=== PATIENT | male | born 1975 | race Caucasian/White ===

== ENCOUNTER 2016-11-14 16:47 | Emergency (ER) | payer OTHER ==
[~2016-11-14] VITALS: Ht 172.7 cm; Wt 59.1 kg
[2016-11-14 17:02] VITALS: BP 123/85; PULSE 59; RESP 14; O2SAT 100
[2016-11-14 18:09] LABS: BASOPHILS % (AUTO) 0.5 % (0-3); EOSINOPHILS % (AUTO) 2.6 % (0-5); MONOCYTES % (AUTO) 7.9 % (4-12); Mean Corpuscular Hemoglobin 29.6 pg (27.0-35.0); Mean Corpuscular Volume 85.6 fL (81-100); NEUTROPHILS % (AUTO) 79.8 % (40-74); Platelet Count 332 bil/L (150-400)
--- NOTE | 2016-11-14 18:19 | ED.REPORT ---
HPI-Abd Pain F 40 and Over Date of Service Nov 14, 2016 ED Provider: Robin Oliveira MD Pt is a healthy 41 y/o male who presents to the ED c/o cramping lower abdominal pain onset this afternoon. He describes his pain as waxing and waning that is exacerbated by eating and drinking. Additional symptoms include nausea, chills, and diaphoresis. He denies vomiting, diarrhea, dysuria, or any similar symptoms previously. Nursing Notes Stated Complaint: ABDOMINAL PAIN & VOMITING Chief Complaint: Male Abdominal Pain Nursing Notes Reviewed: Yes ([place], Introhive not reconciled) Allergies: Coded Allergies: Penicillins (Verified Allergy, Unknown, 10/28/13) General Time Seen by MD: 18:10 Chief Complaint Abdominal pain Hx Obtained From: Patient, Other family... (Step-father) Arrived By: Walk-in Sudden in Onset?: Yes Onset Occurred: 1 - 4 hours ago Symptom Duration: Waxes and wanes Location: : Abdomen lower Quality: Cramping, Painful Radiation: : Does not radiate Severity: Current: Mild Severity: Maximum: Severe Associated with: Reports: Chills, Nausea Additional Notes: diaphoresis Pertinent Negative: Pt denies other symptoms Exacerbated by: Eating Recent Healthcare: No recent doctor visit, No recent hospitalization Similar Sx Previous: No Past Medical History Past Medical History Denies Past Surgical History Denies Smoking History Never Smoker Social History Alcohol Use: Denies alcohol use Drug Use: Denies drug use Other Social History: Good social support Ambulatory Status Independent Review of Systems Constitutional: Reports: Chills GI: Reports: Abdominal pain (lower abdominal pain), Nausea, Denies: Diarrhea, Vomiting Female: Denies: Dysuria Complete sys rev & neg: except as marked. Skin: Reports Diaphoresis Physical Exam Vital Signs Vital Signs (First) Date Time Temp Pulse Resp B/P Pulse Ox O2 Delivery O2 Flow Rate FiO2 11/14/16 17:02 36.8 59 14 123/85 100 Room Air Initial VS: Reviewed, Vital signs normal Head / Eyes: Atraumatic, Normocephalic Neck: Supple, Full range of motion Extremities: Vascular intact, Neuro intact, No swelling, No tenderness Skin: Warm, Dry, No cyanosis Neurologic: Alert, Oriented, Nonfocal Psychiatric: Mood/affect normal, Behavior normal, Normal thought content General/Constitutional: Awake, Alert Respiratory / Chest: Atraumatic, Breath sounds NL, Breath sounds = bilat, No respiratory distress Cardiovascular: Heart rate NL, Regular rhythm, Heart sounds NL Abdomen: Atraumatic, Soft Tenderness/Guarding/Rebound: Negative: McBurney's point tender Tenderness across lower abdomen Back: Full range of motion, Non-tender Interpretation & Diagnostics Lab Results Interpretation Result Diagram: 11/14/16 1806 11/14/16 1806 Test 11/14/16 18:06 White Blood Count 9.5th/mm3 (3.8-10.1) Red Blood Count 5.14mil/mm3 (4.40-5.80) Hemoglobin 15.2g/dL (13.8-17.2) Hematocrit 44.0% (41.0-50.0) Mean Corpuscular Volume 85.6fL (81-100) Mean Corpuscular Hemoglobin 29.6pg (27.0-35.0) Mean Corpuscular Hemoglobin Concent 34.5% (32.0-37.0) Red Cell Distribution Width 13.0% (12.3-15.4) Platelet Count 332bil/L (150-400) Neutrophils (%) (Auto) 79.8% (40-74) Lymphocytes (%) (Auto) 9.1% (14-46) Monocytes (%) (Auto) 7.9% (4-12) Eosinophils (%) (Auto) 2.6% (0-5) Basophils (%) (Auto) 0.5% (0-3) Sodium Level 139mEq/L (134-144) Potassium Level 4.6mEq/L (3.5-5.2) Chloride Level 99mEq/L (97-108) Carbon Dioxide Level 25mmol/L (18-29) Blood Urea Nitrogen 11mg/dL (6-24) Creatinine 0.72mg/dL (0.76-1.27) Estimat Glomerular Filtration Rate 128mL/min (>59) Glucose Level 138mg/dL (60-99) Lactic Acid Level 1.9mmol/L (0.4-2.0) Calcium Level 9.5mg/dL (8.5-10.1) Magnesium Level 1.9mg/dL (1.6-2.6) Total Bilirubin 0.7mg/dL (0.0-1.2) Aspartate Amino Transf (AST/SGOT) 58U/L (0-50) Alanine Aminotransferase (ALT/SGPT) 35U/L (0-44) Alkaline Phosphatase 65U/L (25-150) Total Protein 7.4g/dL (6.4-8.4) Albumin 4.2g/dL (3.4-5.0) Lipase 22U/L (13-60) Lab Results Interpretation: CBC normal CMP normal CT Abd / Pelvis Interpretation IMPRESSION: No CT findings to explain lower abdominal pain. Dictated by: Shirin Castillo M.D. on 11/14/2016 at 20:40 Approved by: Shirin Castillo M.D. on 11/14/2016 at 20:46 Study type: Abdominal CT IV contrast Interpretation / Wet Read by: Interpret - Radiologist Re-Eval/Medical Decision Med Decision/Clinical Course This is a pleasant, previously healthy 41-year-old male no medical problems who developed acute abdominal pain today. He reports he felt a little queasy after eating out last evening, symptoms worsen terrible cramping lower abdominal pain across the entire lower abdomen. No diarrhea, no vomiting, no fevers, no dysuria. Became became so severe that he's never had a slight hip and was brought emergency department from [place]. He appears uncomfortable, but reports his a right symptoms are starting to ease off. He has mild mid and left lower quadrant tenderness without guarding or rebound. Lab work was normal, CT was normal. Patient's improved with some pain medicine and fluids at times. Serial abdominal examinations remained benign without yasmine signs of peritonitis. This point a dangerous etiology is not determined, not finding indication for admission or additional testing at this time. Routine and return precautions reviewed. Patient is discharged in improved condition Source of Hx: Old records Re-Evaluation/Progress : Time of Eval: 21:18 Patient Status: Condition improved Re-Evaluation/Progress Note: Patient rechecked. Discussed plan for discharge. Patient understands and agrees with plan. F/U instructions and RTER warnings given. All questions addressed at this time. Differential Diagnosis: Positive: Acute abdominal pain, Negative: Abdominal aortic aneurysm, Bladder outlet obstruct, Bowel obstruction, Diabetic ketoacidosis, Ectopic preg ruptured, Ectopic , Endometriosis, Esophageal rupture, Esophagitis, Gastroenteritis, Glaucoma, Gun shot wound abdomen, Hernia, Infectious mononucleosis, Intrauterine , Myocardial infarction, Ovarian torsion, Sexually transmit disease, Stab wound abdomen, Volvulus Counseled Regarding: Diagnosis, Lab results, Need for follow-up, When/why to return to ED Discharge & Departure Primary Impression: Abdominal pain Abdominal location: lower abdomen, unspecified Qualified Code: R10.30 - Lower abdominal pain, unspecified Disposition: Home Discharge Condition All VS Reviewed: Yes Condition: Stable Additional Instructions: 1. A dangerous cause of the abdominal pain was not identified. Your blood tests and CT scan were normal. 2. In most cases of this type of pain, symptoms resolve in ~1-2 days. 3. Activities and diet as tolerated 4. Take ibuprofen 400mg up to three times a day for pain 5. If needed for more severe pain, take hydrocodone/APAP 5/325 1 tab up to every 4-6 hours. NOTE: This medication contains a narcotic and causes drowsiness , no driving for at least for a separate taking 6. If you have new or worsening symptoms, return to emergency department for reevaluation Referrals: Mae Hopkins MD Attestation Portions of this note were transcribed by Jacquie Ruiz. I, Dr. Oliveira, personally performed the history, physical exam and medical decision-making; I reviewed and confirmed the accuracy of the information in the transcribed note. Signed by: Rocío Avelar, 11/14/16. copies to: Mae Hopkins MD, Matthew F MD Nov 14, 2016 18:19 Jacquie Ruiz Nov 14, 2016 18:26
[2016-11-14] MEDS ORDERED: HYDROmorphone 0.5 mg/0.5 mL iSecure Syringe IVPUSH PRN (18:20)
[2016-11-14] MEDS ORDERED: Iohexol 300 mg/mL 30 mL Inj PO ONE (18:20)
[2016-11-14] MEDS ORDERED: Ondansetron 2 mg/mL 2 mL Inj IVPUSH ONE (18:20)
[2016-11-14 18:36] LABS: Magnesium 1.9 mg/dL (1.6-2.6)
--- NOTE | 2016-11-14 20:49 | DRSVH ---
PROCEDURE: CT ABDOMEN AND PELVIS WITH CONTRAST ([id number]) INDICATIONS: Lower abdominal pain TECHNIQUE: After the administration of intravenous contrast, 5 mm thick sections acquired from the diaphragm to the symphysis. 5 mm coronal and sagittal reformats were acquired. For radiation dose reduction, the following was used: automated exposure control, adjustment of mA and/or kV according to patient siz e. COMPARISON: None. FINDINGS: Image quality: Excellent. ABDOMEN: Lung bases: Lung bases are clear. Heart size is normal. Solid organs: Liver and spleen are normal in size and enhancement. Gallbladder is normal. Biliary system is non dilated. Pancreas enhances normally. No adrenal nodules. Kidneys demonstrate normal size and enhancement, without hydronephrosis. Peritoneum and bowel: Bowel loops demonstrate normal wall thickness and caliber. The appendix is no rmal. No free fluid or air. Nodes and vessels: No retroperitoneal or mesenteric adenopathy by size criteria. Aorta and inferior vena cava are normal in size. Miscellaneous: No ventral hernias. PELVIS: Genitourinary: Bladder wall thickness is normal. Miscellaneous: No inguinal hernias or adenopathy. Bones: No suspicious bony lesions. No vertebral body compression fractures. IMPRESSION: No CT findings to explain lower abdominal pain. Dictated by: Shirin Castillo M.D. on 11/14/2016 at 20:40 Approved by: Shirin Castillo M.D. on 11/14/2016 at 20:46
[2016-11-14] MEDS ORDERED: _HYDROcodone/APAP 5-325 mg Tablet PO PRN (21:15)
[2016-11-14 21:53] VITALS: BP 105/60; PULSE 69; RESP 16; O2SAT 96
== END 2016-11-14 22:02 | disposition home or self-care (01) ==
LOC: SED 16:47
DX: R10.30 Lower abdominal pain, unspecified (principal); Z88.0 Allergy status to penicillin
CPT/HCPCS: 36415; 74177; 80053; 83605; 83690; 83735; 85025; 96374; 96375; 99285; J1170; J2405; Q9967